=== PATIENT | female | born 1960 | race Hispanic/Latino ===

== ENCOUNTER 2017-06-28 08:21 | Outpatient (CLI) | payer BC ==
--- NOTE | 2017-06-28 10:32 | XRay Report ---
XRAY LEFT HAND THREE VIEWS: 06/28/17 08:21:00 CLINICAL: Left hand pain. She could not remove a ring. FINDINGS: Mild osteopenia. No fracture or dislocation. Moderate osteoarthritis of the thumb involving the basal joint, first MCP joint and the IP joint. Marginal erosions at the lateral aspect of the IP joint of the thumb and marginal erosions at the DIPs joints of the index and middle fingers. Moderate soft tissue swelling of the digits and especially the index, middle and ring fingers. No foreign body or soft tissue air. The carpal bones are intact. Mild radiocarpal joint arthritis. The distal radius is otherwise normal. The distal ulna is normal. IMPRESSION: Erosive arthritis involving the IP joint of the thumb and the DIP joints of the index and middle fingers. Osteoarthritis at the basal joint of the and the first MTP joint without erosions.
== END 2017-06-28 08:22 | disposition home or self-care (01) ==
LOC: SPVIMAG 08:21
PROVIDERS: ATTEND Orthopaedic Surgery Sports Medicine
DX: M19.042 Primary osteoarthritis, left hand (principal); M18.9 Osteoarthritis of first carpometacarpal joint, unspecified